=== PATIENT | female | born 1935 | race Caucasian/White ===

== ENCOUNTER 2018-02-09 21:09 | Emergency (ER) | payer MEDICARE, OTHER ==
--- NOTE | 2018-02-12 11:33 | ER ---
DATE SEEN: 02/09/2018 TIME SEEN: The patient is seen 2120 hours. HISTORY OF PRESENT ILLNESS: Any is an 82-year-old female who looks much younger than her stated age; looks to be 75. She takes warfarin for anticoagulation and blood pressure medications. She has diabetes and she uses insulin. The patient noticed spontaneous onset of swelling of left lower ankle this morning. This gradually progressively got worse and tighter with mild tenderness. She has many varicose veins of lower extremities, never had any stripping. She has mild pain. She is not walking with a limp. MEDICATIONS: 1. Vitamin C. 2. Lutein. 3. Calcium carbonate. 4. Insulin 3 units subcu t.i.d. 5. Insulin degludec 9 units daily. 6. Lovastatin 40 mg daily. 7. Amlodipine 2.5 mg. 8. Warfarin 7.5 mg Monday and Monday. 9. Coumadin 10 mg Monday, Monday, , Monday, and Monday. 10.Losartan 100 mg at bedtime. 11.Carvedilol 25 mg b.i.d. 12.Levothyroxine 137. PAST MEDICAL HISTORY: Hypertension; hypothyroidism, treated; atrial fibrillation with slow ventricular rate. REVIEW OF SYSTEMS: Negative. PHYSICAL EXAMINATION: VITAL SIGNS: Blood pressure 196/100; it was repeated, 173/93. Heart rate 69 and irregularly irregular. Respirations 20. Oxygen saturation 97%. Temperature 37.1 degrees centigrade. Weight 60.4 kilos. BMI of 22.9 kg/m2. GENERAL: The patient is alert, pleasant woman. PERRLA intact. She wears glasses. Hearing is good. Pharynx without abnormality. NECK: No bruits. LUNGS: Clear, without rales, rhonchi. CARDIAC: Irregular heartbeat. S3 and S4 are increased. She has an S3-4 gallop. ABDOMEN: Soft. No guarding. No abdominal discomfort. EXTREMITIES: Left lower extremity and right lower extremity, multiple superficial varicosities. Vascular structures nontender. Left ankle, mild swelling, mild tenderness. Distal to this on the lateral mid foot, she has ecchymosis and vascular purple discoloration. Range of motion of ankles normal. Drawer sign is negative and no proximal 5th metatarsal tenderness. ASSESSMENT: Spontaneous hemorrhage of superficial varicose veins into the left foot, resulting in swelling, mild tenderness. No evidence for fracture. INR is 2.34 and therapeutic. Hemoglobin is 13.6. White count is normal at 6500, PMNs 54, lymphocytes 35, monos 8, and platelets 156,000. PLAN: Chris wrap. Continue with her Coumadin. She needs it for atrial fibrillation, to prevent complications. Elevate her leg. Only get up to go to the bathroom, to eat, and shower. Follow up with doctor in a week, earlier if worse. Elevate her legs above her heart most of the day for the next several days. OTHER DIAGNOSES: 1. Atrial fibrillation, on anticoagulation, therapeutic. 2. Hypertension, treated. 3. Hypothyroidism, treated. 4. Diabetic, treated. /[id number] ERNESTO/LIZET
== END 2018-02-09 22:03 | disposition home or self-care (01) ==
LOC: FB.ED 21:09
DX: I83.92 Asymptomatic varicose veins of left lower extremity (principal); I10 Essential (primary) hypertension; E03.9 Hypothyroidism, unspecified; E11.9 Type 2 diabetes mellitus without complications; Z79.4 Long term (current) use of insulin; Z79.899 Other long term (current) drug therapy
CPT/HCPCS: 36415; 85025; 85610; 99283

== ENCOUNTER 2020-03-16 11:16 | Observation (INO) | payer MEDICARE, OTHER ==
--- NOTE | 2020-03-16 11:56 | EDM.PDOC ---
ED HPI GENERAL MEDICAL PROBLEM - General Chief Complaint: Gastrointestinal Problem Stated Complaint: BLOODY STOOLS Time Seen by Provider: 03/16/20 11:25 Source of Information: Reports: Patient History Limitations: Reports: No Limitations - History of Present Illness INITIAL COMMENTS - FREE TEXT/NARRATIVE: c/o blood in toilet water x 2 today pt had colonoscopy [address] Crouch in clinic, pt told it "was fine" and that she did not need to have additional ones has been working in her garden, eating tomatoes 1w ago she had epigastric pain, cramping, intermittent, occurred daily for 2-3d, then moved to her lower abd, also cramping had soft daily BMs, good appetite, felt fine awoke 3x last night to void, as usual up at 7:30a and had a small formed brown BM with BRBC in toilet water, no pain or cramping with BM later in AM she had a 2nd small BM with smaller amount of BRBC in toile water on warfarin x ~15y for afib, had EST in [place] ~15y ago at time of dx which was neg, no other CV hx, no stents, no OH lives alone in her own house, 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, has 4 children, all live in the [facility], born and lived her entire live in [place] no h/o hemorrhoids has hysterectomy age 47, later had oopherectomy, denies other abd surgery no n/v, not ill, feels well, no f/c/d PCP Marley Jung PMH INCLUDES PER [facility] DM, hypothyroid, afib LAST ED VISIT RECENT MEDS PER [facility] Humalog 3u tid, Tresiba 9u/d, levothyr 137 mcg/d CV carvedilol 25 bid, amlodipine 2.5 qhs, warfarin, lovastatin 40 qhs, losartan 100 qhs NUTR calcium, vit C RECENT HOSPITALIZATION RECENT LABS IN [facility] 2y ago CBC neg with hgb 13.6, no comparison 2y INR 2.34 RECENT IMAGING IN [facility] only imaging is bone density scan 6y with dx osteopenia Lower Abdomen Pain Score (Numeric/FACES): 2 - Related Data Allergies Allergy/AdvReac Type Severity Reaction Status Date / Time No Known Allergies Allergy Verified 02/09/18 21:23 Home Meds: Home Meds Ascorbate Calcium [Vitamin C] 500 mg PO DAILY 02/09/18 [History] Calcium Carbonate [Calcium] 600 mg PO BEDTIME 02/09/18 [History] Insulin Degludec [Tresiba Flextouch U-100] 9 units SQ DAILY 02/09/18 [History] Insulin Lispro [Humalog] 3 unit SQ TID 02/09/18 [History] Levothyroxine Sodium 137 mcg PO DAILY 02/09/18 [History] Losartan [Cozaar] 100 mg PO BEDTIME 02/09/18 [History] Lovastatin 40 mg PO BEDTIME 02/09/18 [History] Lutein 20 mg PO BEDTIME 02/09/18 [History] Warfarin [Coumadin] 7.5 mg PO MOWE 02/09/18 [History] Warfarin [Coumadin] 10 mg PO SUTUTHFRSA 02/09/18 [History] amLODIPine [Norvasc] 2.5 mg PO BEDTIME 02/09/18 [History] carvediloL [Carvedilol] 25 mg PO BID 02/09/18 [History] Past Medical History Cardiovascular History: Reports: Afib Endocrine/Metabolic History: Reports: Diabetes, Type II Social & Family History - Family History Family Medical History: Noncontributory - Tobacco Use Smoking Status *Q: Never Smoker - Caffeine Use Caffeine Use: Reports: Coffee ED ROS GENERAL - Review of Systems Review Of Systems: See Below Constitutional: Reports: No Symptoms HEENT: Reports: No Symptoms Respiratory: Reports: No Symptoms Cardiovascular: Reports: No Symptoms Endocrine: Reports: No Symptoms GI/Abdominal: Reports: Abdominal Pain, Diarrhea. Denies: Nausea, Vomiting : Reports: No Symptoms Musculoskeletal: Reports: No Symptoms Skin: Reports: No Symptoms Neurological: Reports: No Symptoms Psychiatric: Reports: No Symptoms Hematologic/Lymphatic: Reports: No Symptoms Immunologic: Reports: No Symptoms ED EXAM, GI/ABD - Physical Exam Exam: See Below Exam Limited By: No Limitations General Appearance: Alert, WD/WN, No Apparent Distress Ears: Hearing Grossly Normal Neck: Normal Inspection, Supple, Non-Tender, Full Range of Motion. No: Lymphadenopathy (R), Lymphadenopathy (L) Respiratory/Chest: No Respiratory Distress, Lungs Clear, Normal Breath Sounds, No Accessory Muscle Use, Chest Non-Tender Cardiovascular: Other (slight irregular, 1-2/6 SALONI at LSB, quiet precordium, chest wall nontender) GI/Abdominal Exam: Normal Bowel Sounds, Soft, Non-Tender, No Organomegaly, No Distention, No Mass, Other (soft, ND, good BS x 4, no mass, no definite tender to deep palp throughout including epigastrium and lower abd, no CVAT b/l) Rectal (Female) Exam: Other (perianal exam with normal skin, no hemorrhoids, no visible stool or RBC, SHANNAN deferred) Back Exam: Normal Inspection, Full Range of Motion. No: CVA Tenderness (R), CVA Tenderness (L) Extremities: Normal Inspection, Normal Range of Motion, Non-Tender, No Pedal Edema Neurological: Alert, Oriented, CN II-XII Intact, Normal Cognition, Normal Gait, No Motor/Sensory Deficits Psychiatric: Normal Affect, Normal Mood Skin Exam: Warm, Dry, Intact, Normal Color, No Rash Lymphatic: No Adenopathy Course - Vital Signs Last Recorded V/S: Last Vital Signs Temp 36.8 C 03/16/20 11:30 Pulse 61 03/16/20 11:30 Resp 16 03/16/20 11:30 BP 156/58 H 03/16/20 11:30 Pulse Ox 97 03/16/20 11:30 - Orders/Labs/Meds Orders: Active Orders 24 hr Category Date Time Status Admission Status [Patient Status] [ADT] Routine ADT 03/16/20 15:18 Ordered EKG Documentation Completion [RC] ASDIRECTED Care 03/16/20 12:12 Active CULTURE URINE [RM] Stat Lab 03/16/20 12:25 Received Magnesium Sulfate/Water [Magnesium Sulfate in Water Med 03/16/20 15:15 Active Premix] 50 ml IV ONETIME EKG 12 Lead [EK] Routine Ther 03/16/20 12:11 Ordered Medication Orders Magnesium Sulfate (Magnesium Sulfate In Water Premix) 50 mls @ 50 mls/hr IV ONETIME ONE Stop: 03/16/20 16:14 Labs: Laboratory Tests 03/16/20 03/16/20 03/16/20 Range/Units 12:23 12:25 12:25 WBC 8.2 (4.5-12.0) X10-3/uL RBC 4.48 (3.23-5.20) x10(6)uL Hgb 13.1 (11.5-15.5) g/dL Hct 40.8 (30.0-51.3) % MCV 91.1 (80-96) fL MCH 29.3 (27.7-33.6) pg MCHC 32.1 L (32.2-35.4) g/dL RDW 12.5 (11.5-15.5) % Plt Count 195 (125-369) X10(3)uL MPV 8.4 (7.4-10.4) fL Neut % (Auto) 75.5 (46-82) % Lymph % (Auto) 15.7 (13-37) % [place] % (Auto) 8.3 (4-12) % Eos % (Auto) 0 L (1.0-5.0) % Baso % (Auto) 0 (0-2) % Neut # (Auto) 6.2 (1.6-8.3) # Lymph # (Auto) 1.3 (0.6-5.0) # [place] # (Auto) 0.7 (0.0-1.3) # Eos # (Auto) 0.0 (0.0-0.8) # Baso # (Auto) 0.0 (0.0-0.2) # PT 46.8 H* (9.0-11.1) sec INR 4.80 H* (1.00-1.24) Sodium (135-145) mmol/L Potassium (3.5-5.3) mmol/L Chloride (100-110) mmol/L Carbon Dioxide (21-32) mmol/L BUN (7-18) mg/dL Creatinine (0.55-1.02) mg/dL Est Cr Clr Drug Dosing Estimated GFR (MDRD) (>60) BUN/Creatinine Ratio (9-20) Glucose (80-116) mg/dL Calcium (8.6-10.2) mg/dL Magnesium (1.8-2.5) mg/dL Total Bilirubin (0.1-1.3) mg/dL AST (5-25) IU/L ALT (12-36) U/L Alkaline Phosphatase (56-112) IU/L Troponin I (4.0-60.3) pg/mL C-Reactive Protein (0.5-0.9) mg/dL NT-Pro-B Natriuret Pep (<=450) pg/mL Total Protein (6.0-8.0) g/dL Albumin (3.2-4.6) g/dL Globulin g/dL Albumin/Globulin Ratio Lipase (73-393) U/L Urine Color Yellow (YELLOW) Urine Appearance Slightly cloudy (CLEAR) Urine pH 6.0 (5.0-6.5) Ur Specific [place] 1.015 (1.010-1.025) Urine Protein 30 H (NEGATIVE) mg/dL Urine Glucose (UA) >1000 H (NORMAL) mg/dL Urine Ketones 15 H (NEGATIVE) mg/dL Urine Occult Blood Large H (NEGATIVE) Urine Nitrite Negative (NEGATIVE) Urine Bilirubin Negative (NEGATIVE) Urine Urobilinogen Normal (NEGATIVE) mg/dL Ur Leukocyte Esterase Small H (NEGATIVE) Urine RBC 0-5 (0-5) Urine WBC 5-10 H (0-5) Ur Squamous Epith Cells Occasional (NS,R,O) Amorphous Sediment Few Urine Bacteria Many H (NS) 03/16/20 03/16/20 03/16/20 Range/Units 12:25 12:25 12:30 WBC (4.5-12.0) X10-3/uL RBC (3.23-5.20) x10(6)uL Hgb (11.5-15.5) g/dL Hct (30.0-51.3) % MCV (80-96) fL MCH (27.7-33.6) pg MCHC (32.2-35.4) g/dL RDW (11.5-15.5) % Plt Count (125-369) X10(3)uL MPV (7.4-10.4) fL Neut % (Auto) (46-82) % Lymph % (Auto) (13-37) % [place] % (Auto) (4-12) % Eos % (Auto) (1.0-5.0) % Baso % (Auto) (0-2) % Neut # (Auto) (1.6-8.3) # Lymph # (Auto) (0.6-5.0) # [place] # (Auto) (0.0-1.3) # Eos # (Auto) (0.0-0.8) # Baso # (Auto) (0.0-0.2) # PT (9.0-11.1) sec INR (1.00-1.24) Sodium 138 (135-145) mmol/L Potassium 3.8 (3.5-5.3) mmol/L Chloride 101 (100-110) mmol/L Carbon Dioxide 32 (21-32) mmol/L BUN 17 (7-18) mg/dL Creatinine 1.0 (0.55-1.02) mg/dL Est Cr Clr Drug Dosing TNP Estimated GFR (MDRD) 53 L (>60) BUN/Creatinine Ratio 17.0 (9-20) Glucose 322 H (80-116) mg/dL Calcium 9.3 (8.6-10.2) mg/dL Magnesium 1.5 L (1.8-2.5) mg/dL Total Bilirubin 1.3 (0.1-1.3) mg/dL AST 17 (5-25) IU/L ALT 16 (12-36) U/L Alkaline Phosphatase 66 (56-112) IU/L Troponin I 90.9 H* (4.0-60.3) pg/mL C-Reactive Protein 3.4 H* (0.5-0.9) mg/dL NT-Pro-B Natriuret Pep (<=450) pg/mL Total Protein 6.9 (6.0-8.0) g/dL Albumin 3.2 (3.2-4.6) g/dL Globulin 3.7 g/dL Albumin/Globulin Ratio 0.9 Lipase 100 (73-393) U/L Urine Color (YELLOW) Urine Appearance (CLEAR) Urine pH (5.0-6.5) Ur Specific [place] (1.010-1.025) Urine Protein (NEGATIVE) mg/dL Urine Glucose (UA) (NORMAL) mg/dL Urine Ketones (NEGATIVE) mg/dL Urine Occult Blood (NEGATIVE) Urine Nitrite (NEGATIVE) Urine Bilirubin (NEGATIVE) Urine Urobilinogen (NEGATIVE) mg/dL Ur Leukocyte Esterase (NEGATIVE) Urine RBC (0-5) Urine WBC (0-5) Ur Squamous Epith Cells (NS,R,O) Amorphous Sediment Urine Bacteria (NS) 03/16/20 03/16/20 Range/Units 12:30 14:35 WBC (4.5-12.0) X10-3/uL RBC (3.23-5.20) x10(6)uL Hgb (11.5-15.5) g/dL Hct (30.0-51.3) % MCV (80-96) fL MCH (27.7-33.6) pg MCHC (32.2-35.4) g/dL RDW (11.5-15.5) % Plt Count (125-369) X10(3)uL MPV (7.4-10.4) fL Neut % (Auto) (46-82) % Lymph % (Auto) (13-37) % [place] % (Auto) (4-12) % Eos % (Auto) (1.0-5.0) % Baso % (Auto) (0-2) % Neut # (Auto) (1.6-8.3) # Lymph # (Auto) (0.6-5.0) # [place] # (Auto) (0.0-1.3) # Eos # (Auto) (0.0-0.8) # Baso # (Auto) (0.0-0.2) # PT (9.0-11.1) sec INR (1.00-1.24) Sodium (135-145) mmol/L Potassium (3.5-5.3) mmol/L Chloride (100-110) mmol/L Carbon Dioxide (21-32) mmol/L BUN (7-18) mg/dL Creatinine (0.55-1.02) mg/dL Est Cr Clr Drug Dosing Estimated GFR (MDRD) (>60) BUN/Creatinine Ratio (9-20) Glucose (80-116) mg/dL Calcium (8.6-10.2) mg/dL Magnesium (1.8-2.5) mg/dL Total Bilirubin (0.1-1.3) mg/dL AST (5-25) IU/L ALT (12-36) U/L Alkaline Phosphatase (56-112) IU/L Troponin I 86.0 H* (4.0-60.3) pg/mL C-Reactive Protein (0.5-0.9) mg/dL NT-Pro-B Natriuret Pep 3165 H* (<=450) pg/mL Total Protein (6.0-8.0) g/dL Albumin (3.2-4.6) g/dL Globulin g/dL Albumin/Globulin Ratio Lipase (73-393) U/L Urine Color (YELLOW) Urine Appearance (CLEAR) Urine pH (5.0-6.5) Ur Specific [place] (1.010-1.025) Urine Protein (NEGATIVE) mg/dL Urine Glucose (UA) (NORMAL) mg/dL Urine Ketones (NEGATIVE) mg/dL Urine Occult Blood (NEGATIVE) Urine Nitrite (NEGATIVE) Urine Bilirubin (NEGATIVE) Urine Urobilinogen (NEGATIVE) mg/dL Ur Leukocyte Esterase (NEGATIVE) Urine RBC (0-5) Urine WBC (0-5) Ur Squamous Epith Cells (NS,R,O) Amorphous Sediment Urine Bacteria (NS) Meds: Medications Generic Name Dose Route Start Last Admin Trade Name Freq PRN Reason Stop Dose Admin Magnesium Sulfate 50 mls @ 50 mls/hr 03/16/20 15:15 Magnesium Sulfate In Water Premix IV 03/16/20 16:14 ONETIME ONE Discontinued Medications Generic Name Dose Route Start Last Admin Trade Name Freq PRN Reason Stop Dose Admin Ceftriaxone Sodium 1 gm 03/16/20 13:40 03/16/20 14:06 Rocephin IVPUSH 03/16/20 13:41 1 gm ONETIME ONE Administration Sodium Chloride 1,000 mls @ 999 mls/hr 03/16/20 13:42 03/16/20 13:57 Normal Saline IV 03/16/20 14:42 999 mls/hr .BOLUS ONE Administration Insulin Human Regular 5 unit 03/16/20 13:41 03/16/20 14:11 Humulin R IV 03/16/20 13:42 5 unit ONETIME ONE Administration - Re-Assessments/Exams Free Text/Narrative Re-Assessment/Exam: 03/16/20 15:26 pt reports her warfarin was inc'd 2m ago, has been taking as rx'ed she did have a small BM here in ED, said it was brown, no RBC in toilet water, unfortunately she flushed it without showing it to an yone as she had a colonoscopy last year, symptomatic monitoring of her hgb and rectal bleeding would appear appropriate will hold warfarin for now also with elevated trop x 2 that is unchanged, cannot exclude an OH one week ago (she did have upper abd pain) lower abd pain now is c/w UTI elevated CRP is most likely d/t UTI, does not have symptoms of PMR or other inflammatory disorder pt currently on BB and ARB, does have some peripheral edema altho does not appear to be a candidate for a low dose diuretic as she is mildly dehydrated already d/w hospitalist Dr Alexander who accepted her in admission for 1) hematochezia and monitoring of her hgb which is currently down 0.5 points from previous, 2) cardiac monitoring, will be able to do an echo tomorrow and arrange a cardiology referral assuming she is ready for d/c in AM pt in agreement Departure - Departure Time of Disposition: 15:22 Disposition: Refer to Observation Condition: Good Clinical Impression: Hematochezia, Elevated troponin, LV dysfunction, ST segment depression, Supratherapeutic INR, Hypomagnesemia, UTI (urinary tract infection), Elevated C-reactive protein (CRP), Dehydration, Ketonuria, Hyperglycemia - Discharge Information *PRESCRIPTION DRUG MONITORING PROGRAM REVIEWED*: Not Applicable *COPY OF PRESCRIPTION DRUG MONITORING REPORT IN PATIENT [place]: Not Applicable Referrals: Lauren Coronado TREER [Primary Care Provider] - Forms: ED Department Discharge Sepsis Event Note (ED) - Evaluation Sepsis Screening Result: No Definite Risk - Focused Exam Vital Signs: Vital Signs Temp Pulse Resp BP Pulse Ox 03/16/20 11:30 36.8 C 61 16 156/58 H 97 - My Orders Last 24 Hours: My Active Orders 03/16/20 12:11 EKG 12 Lead [EK] Routine 03/16/20 12:12 EKG Documentation Completion [RC] ASDIRECTED 03/16/20 12:25 CULTURE URINE [RM] Stat 03/16/20 15:15 Magnesium Sulfate/Water [Magnesium Sulfate in Water Premix] 50 ml IV ONETIME 03/16/20 15:18 Admission Status [Patient Status] [ADT] Routine - Assessment/Plan Last 24 Hours: My Active Orders 03/16/20 12:11 EKG 12 Lead [EK] Routine 03/16/20 12:12 EKG Documentation Completion [RC] ASDIRECTED 03/16/20 12:25 CULTURE URINE [RM] Stat 03/16/20 15:15 Magnesium Sulfate/Water [Magnesium Sulfate in Water Premix] 50 ml IV ONETIME 03/16/20 15:18 Admission Status [Patient Status] [ADT] Routine
[2020-03-16] MEDS ORDERED: cefTRIAXone 2 GM Vial IVPUSH ONE (13:40)
[2020-03-16] MEDS ORDERED: Insulin Regular, Human 100 Units/ML 3 ML Vial IV ONE (13:41)
[2020-03-16] MEDS ORDERED: Sodium Chloride 0.9% 1,000 ML IV ONE (13:42)
[2020-03-16] MEDS ORDERED: Magnesium Sulfate/Water 50 ML IV ONE (15:15)
[2020-03-16] MEDS ORDERED: Phytonadione 5 MG Tab PO ONE (16:29)
[2020-03-16] MEDS ORDERED: INSULIN DEGLUDEC SQ SCH (16:45)
--- NOTE | 2020-03-16 17:07 | PCM.HP.2 ---
H&P History of Present Illness - General Date of Service: 03/16/20 Admit Problem/Dx: Admission Diagnosis/Problem Admission Diagnosis/Problem Hematochezia Source of Information: Patient, Old Records, Provider History Limitations: Reports: No Limitations - History of Present Illness Initial Comments - Free Text/Narative: Any is an 84-year-old female what bright red blood per rectum, one stool this morning. She is otherwise healthy and has a history of atrial fibrillation on long-term anticoagulation. She denied any chest pain shortness breath fever or chills. Lower Abdomen Pain Score (Numeric/FACES): 2 - Related Data Allergies/Adverse Reactions: Allergies Allergy/AdvReac Type Severity Reaction Status Date / Time No Known Allergies Allergy Verified 02/09/18 21:23 Home Medications: Home Meds Ascorbate Calcium [Vitamin C] 500 mg PO DAILY 02/09/18 [History] Calcium Carbonate [Calcium] 600 mg PO BEDTIME 02/09/18 [History] Insulin Degludec [Tresiba Flextouch U-100] 14 units SQ DAILY 02/09/18 [History] Insulin Lispro [Humalog] 3 unit SQ TID 02/09/18 [History] Levothyroxine Sodium 137 mcg PO DAILY 02/09/18 [History] Losartan [Cozaar] 100 mg PO BEDTIME 02/09/18 [History] Lovastatin 40 mg PO BEDTIME 02/09/18 [History] Lutein 20 mg PO BEDTIME 02/09/18 [History] Warfarin [Coumadin] 7.5 mg PO MOWE 02/09/18 [History] Warfarin [Coumadin] 10 mg PO SUTUTHFRSA 02/09/18 [History] Metoprolol Tartrate 50 mg PO BID 03/16/20 [History] amLODIPine [Norvasc] 5 mg PO DAILY 03/16/20 [History] Past Medical History Cardiovascular History: Reports: Afib Endocrine/Metabolic History: Reports: Diabetes, Type II Social & Family History - Family History Family Medical History: Noncontributory - Tobacco Use Smoking Status *Q: Never Smoker - Caffeine Use Caffeine Use: Reports: Coffee H&P Review of Systems - Review of Systems: Review Of Systems: Comprehensive ROS is negative, except as noted in HPI. Exam - Exam Exam: See Below - Vital Signs Vital Signs: Last Vital Signs Temp 98.3 F 03/16/20 11:30 Pulse 61 03/16/20 11:30 Resp 16 03/16/20 11:30 BP 156/58 H 03/16/20 11:30 Pulse Ox 97 03/16/20 11:30 Weight: 63.503 kg - Exam General: Alert, Oriented, 4 HEENT: PERRLA, Hearing Intact, Mucosa Moist & [place], Nares Patent, Normal Nasal Septum, Posterior Pharynx Clear, Conjunctiva Clear, EOMI, EACs Clear, TMs Clear Neck: Supple, Trachea Midline, 2 Lungs: Clear to Auscultation, Normal Respiratory Effort Cardiovascular: Irregular Rhythm GI/Abdominal Exam: Normal Bowel Sounds, Soft, Non-Tender, No Organomegaly, No Distention, No Abnormal Bruit, No Mass, Pelvis Stable (Female) Exam: Deferred Rectal (Female) Exam: Deferred Back Exam: Normal Inspection, Full Range of Motion, NT Extremities: Normal Inspection, Normal Range of Motion, Non-Tender, No Pedal Edema, Normal Capillary Refill Skin: Warm, Dry, Intact Neurological: Cranial Nerves Intact, Reflexes Equal Bilateral Neuro Extensive - Mental Status: Alert, Oriented x3, Normal Mood/Affect, Normal Cognition Neuro Extensive - Motor, Sensory, Reflexes: CN II-XII Intact, Normal Gait, Normal Reflexes Psychiatric: Alert, Normal Affect, Normal Mood - Patient Data Lab Results Last 24 hrs: Laboratory Results - last 24 hr 03/16/20 03/16/20 03/16/20 Range/Units 12:23 12:25 12:25 WBC 8.2 (4.5-12.0) X10-3/uL RBC 4.48 (3.23-5.20) x10(6)uL Hgb 13.1 (11.5-15.5) g/dL Hct 40.8 (30.0-51.3) % MCV 91.1 (80-96) fL MCH 29.3 (27.7-33.6) pg MCHC 32.1 L (32.2-35.4) g/dL RDW 12.5 (11.5-15.5) % Plt Count 195 (125-369) X10(3)uL MPV 8.4 (7.4-10.4) fL Neut % (Auto) 75.5 (46-82) % Lymph % (Auto) 15.7 (13-37) % Sharp % (Auto) 8.3 (4-12) % Eos % (Auto) 0 L (1.0-5.0) % Baso % (Auto) 0 (0-2) % Neut # (Auto) 6.2 (1.6-8.3) # Lymph # (Auto) 1.3 (0.6-5.0) # Sharp # (Auto) 0.7 (0.0-1.3) # Eos # (Auto) 0.0 (0.0-0.8) # Baso # (Auto) 0.0 (0.0-0.2) # PT 46.8 H* (9.0-11.1) sec INR 4.80 H* (1.00-1.24) Sodium (135-145) mmol/L Potassium (3.5-5.3) mmol/L Chloride (100-110) mmol/L Carbon Dioxide (21-32) mmol/L BUN (7-18) mg/dL Creatinine (0.55-1.02) mg/dL Est Cr Clr Drug Dosing Estimated GFR (MDRD) (>60) BUN/Creatinine Ratio (9-20) Glucose (80-116) mg/dL Calcium (8.6-10.2) mg/dL Magnesium (1.8-2.5) mg/dL Total Bilirubin (0.1-1.3) mg/dL AST (5-25) IU/L ALT (12-36) U/L Alkaline Phosphatase (56-112) IU/L Troponin I (4.0-60.3) pg/mL C-Reactive Protein (0.5-0.9) mg/dL NT-Pro-B Natriuret Pep (<=450) pg/mL Total Protein (6.0-8.0) g/dL Albumin (3.2-4.6) g/dL Globulin g/dL Albumin/Globulin Ratio Lipase (73-393) U/L Urine Color Yellow (YELLOW) Urine Appearance Slightly cloudy (CLEAR) Urine pH 6.0 (5.0-6.5) Ur Specific [place] 1.015 (1.010-1.025) Urine Protein 30 H (NEGATIVE) mg/dL Urine Glucose (UA) >1000 H (NORMAL) mg/dL Urine Ketones 15 H (NEGATIVE) mg/dL Urine Occult Blood Large H (NEGATIVE) Urine Nitrite Negative (NEGATIVE) Urine Bilirubin Negative (NEGATIVE) Urine Urobilinogen Normal (NEGATIVE) mg/dL Ur Leukocyte Esterase Small H (NEGATIVE) Urine RBC 0-5 (0-5) Urine WBC 5-10 H (0-5) Ur Squamous Epith Cells Occasional (NS,R,O) Amorphous Sediment Few Urine Bacteria Many H (NS) 03/16/20 03/16/20 03/16/20 Range/Units 12:25 12:25 12:30 WBC (4.5-12.0) X10-3/uL RBC (3.23-5.20) x10(6)uL Hgb (11.5-15.5) g/dL Hct (30.0-51.3) % MCV (80-96) fL MCH (27.7-33.6) pg MCHC (32.2-35.4) g/dL RDW (11.5-15.5) % Plt Count (125-369) X10(3)uL MPV (7.4-10.4) fL Neut % (Auto) (46-82) % Lymph % (Auto) (13-37) % Sharp % (Auto) (4-12) % Eos % (Auto) (1.0-5.0) % Baso % (Auto) (0-2) % Neut # (Auto) (1.6-8.3) # Lymph # (Auto) (0.6-5.0) # Sharp # (Auto) (0.0-1.3) # Eos # (Auto) (0.0-0.8) # Baso # (Auto) (0.0-0.2) # PT (9.0-11.1) sec INR (1.00-1.24) Sodium 138 (135-145) mmol/L Potassium 3.8 (3.5-5.3) mmol/L Chloride 101 (100-110) mmol/L Carbon Dioxide 32 (21-32) mmol/L BUN 17 (7-18) mg/dL Creatinine 1.0 (0.55-1.02) mg/dL Est Cr Clr Drug Dosing TNP Estimated GFR (MDRD) 53 L (>60) BUN/Creatinine Ratio 17.0 (9-20) Glucose 322 H (80-116) mg/dL Calcium 9.3 (8.6-10.2) mg/dL Magnesium 1.5 L (1.8-2.5) mg/dL Total Bilirubin 1.3 (0.1-1.3) mg/dL AST 17 (5-25) IU/L ALT 16 (12-36) U/L Alkaline Phosphatase 66 (56-112) IU/L Troponin I 90.9 H* (4.0-60.3) pg/mL C-Reactive Protein 3.4 H* (0.5-0.9) mg/dL NT-Pro-B Natriuret Pep (<=450) pg/mL Total Protein 6.9 (6.0-8.0) g/dL Albumin 3.2 (3.2-4.6) g/dL Globulin 3.7 g/dL Albumin/Globulin Ratio 0.9 Lipase 100 (73-393) U/L Urine Color (YELLOW) Urine Appearance (CLEAR) Urine pH (5.0-6.5) Ur Specific [place] (1.010-1.025) Urine Protein (NEGATIVE) mg/dL Urine Glucose (UA) (NORMAL) mg/dL Urine Ketones (NEGATIVE) mg/dL Urine Occult Blood (NEGATIVE) Urine Nitrite (NEGATIVE) Urine Bilirubin (NEGATIVE) Urine Urobilinogen (NEGATIVE) mg/dL Ur Leukocyte Esterase (NEGATIVE) Urine RBC (0-5) Urine WBC (0-5) Ur Squamous Epith Cells (NS,R,O) Amorphous Sediment Urine Bacteria (NS) 03/16/20 03/16/20 Range/Units 12:30 14:35 WBC (4.5-12.0) X10-3/uL RBC (3.23-5.20) x10(6)uL Hgb (11.5-15.5) g/dL Hct (30.0-51.3) % MCV (80-96) fL MCH (27.7-33.6) pg MCHC (32.2-35.4) g/dL RDW (11.5-15.5) % Plt Count (125-369) X10(3)uL MPV (7.4-10.4) fL Neut % (Auto) (46-82) % Lymph % (Auto) (13-37) % Sharp % (Auto) (4-12) % Eos % (Auto) (1.0-5.0) % Baso % (Auto) (0-2) % Neut # (Auto) (1.6-8.3) # Lymph # (Auto) (0.6-5.0) # Sharp # (Auto) (0.0-1.3) # Eos # (Auto) (0.0-0.8) # Baso # (Auto) (0.0-0.2) # PT (9.0-11.1) sec INR (1.00-1.24) Sodium (135-145) mmol/L Potassium (3.5-5.3) mmol/L Chloride (100-110) mmol/L Carbon Dioxide (21-32) mmol/L BUN (7-18) mg/dL Creatinine (0.55-1.02) mg/dL Est Cr Clr Drug Dosing Estimated GFR (MDRD) (>60) BUN/Creatinine Ratio (9-20) Glucose (80-116) mg/dL Calcium (8.6-10.2) mg/dL Magnesium (1.8-2.5) mg/dL Total Bilirubin (0.1-1.3) mg/dL AST (5-25) IU/L ALT (12-36) U/L Alkaline Phosphatase (56-112) IU/L Troponin I 86.0 H* (4.0-60.3) pg/mL C-Reactive Protein (0.5-0.9) mg/dL NT-Pro-B Natriuret Pep 3165 H* (<=450) pg/mL Total Protein (6.0-8.0) g/dL Albumin (3.2-4.6) g/dL Globulin g/dL Albumin/Globulin Ratio Lipase (73-393) U/L Urine Color (YELLOW) Urine Appearance (CLEAR) Urine pH (5.0-6.5) Ur Specific [place] (1.010-1.025) Urine Protein (NEGATIVE) mg/dL Urine Glucose (UA) (NORMAL) mg/dL Urine Ketones (NEGATIVE) mg/dL Urine Occult Blood (NEGATIVE) Urine Nitrite (NEGATIVE) Urine Bilirubin (NEGATIVE) Urine Urobilinogen (NEGATIVE) mg/dL Ur Leukocyte Esterase (NEGATIVE) Urine RBC (0-5) Urine WBC (0-5) Ur Squamous Epith Cells (NS,R,O) Amorphous Sediment Urine Bacteria (NS) Result Diagrams: 03/17/20 06:25 03/17/20 06:25 Sepsis Event Note - Evaluation Sepsis Screening Result: No Definite Risk - Focused Exam Vital Signs: Vital Signs Temp Pulse Resp BP Pulse Ox 03/16/20 11:30 98.3 F 61 16 156/58 H 97 - Problem List (1) BRBPR (bright red blood per rectum) SNOMED Code(s): 46921286 ICD Code: K62.5 - HEMORRHAGE OF ANUS AND RECTUM Status: Acute Current Visit: Yes (2) Afib SNOMED Code(s): 29370900 ICD Code: I48.91 - UNSPECIFIED ATRIAL FIBRILLATION Status: Acute Current Visit: Yes Qualifiers: Atrial fibrillation type: persistent (not longstanding) Qualified Code(s): I48.19 - Other persistent atrial fibrillation; I48.1 - Persistent atrial fibrillation (3) USP current use of anticoagulant SNOMED Code(s): 748511558 ICD Code: Z79.01 - SKILLED NURSING (CURRENT) USE OF ANTICOAGULANTS Status: Acute Current Visit: Yes Problem List Initiated/Reviewed/Updated: Yes Orders Last 24hrs: Active Orders 24 hr Category Date Time Status Admission Status [Patient Status] [ADT] Routine ADT 03/16/20 15:18 Active Blood Glucose Check, Bedside [RC] QIDACANDBED Care 03/16/20 16:29 Active Cardiac Monitoring [RC] CONTINUOUS Care 03/16/20 16:30 Active Communication Order [RC] ROUTINE Care 03/17/20 09:00 Active EKG Documentation Completion [RC] ASDIRECTED Care 03/16/20 12:12 Active EKG Documentation Completion [RC] ASDIRECTED Care 03/16/20 16:38 Active Height and Weight [RC] UPON Care 03/16/20 16:29 Active Oxygen Therapy [RC] PRN Care 03/16/20 16:29 Active Up ad Daniela [RC] ASDIRECTED Care 03/16/20 16:29 Active VTE/DVT Education [RC] Per Unit Routine Care 03/16/20 16:29 Active Vital Signs [RC] Q4H Care 03/16/20 16:29 Active BASIC METABOLIC PANEL,BMP [CHEM] DAILY Lab 03/17/20 16:30 Ordered BASIC METABOLIC PANEL,BMP [CHEM] DAILY Lab 03/18/20 16:30 Ordered CBC W/O DIFF,HEMOGRAM [HEME] DAILY Lab 03/17/20 16:30 Ordered CBC W/O DIFF,HEMOGRAM [HEME] DAILY Lab 03/18/20 16:30 Ordered CBC WITH AUTO DIFF [HEME] AM Lab 03/17/20 05:11 Ordered CULTURE URINE [RM] Stat Lab 03/16/20 12:25 Received INR,PT,PROTHROMBIN TIME [COAG] Routine Lab 03/17/20 05:11 Ordered TSH ULTRASENSITIVE [CHEM] Routine Lab 03/16/20 16:42 Ordered Insulin Degludec [Tresiba Flextouch U-100] Med 03/16/20 16:45 Ordered 9 units SQ DAILY Insulin Lispro [HumaLOG] Med 03/16/20 21:00 Ordered 3 unit SUBCUT TID Levothyroxine [Levothroid] Med 03/17/20 09:00 Ordered 137 mcg PO DAILY Losartan [Cozaar] Med 03/16/20 21:00 Ordered 100 mg PO BEDTIME Lovastatin [Mevacor] Med 03/16/20 21:00 Ordered 40 mg PO BEDTIME Lutein [Lutein] Med 03/16/20 21:00 Ordered 20 mg PO BEDTIME Sulfamethoxazole/Trimethoprim [Septra DS] Med 03/17/20 09:00 Ordered 1 tab PO BID amLODIPine [Norvasc] Med 03/16/20 21:00 Pending 2.5 mg PO BEDTIME carvediloL [Coreg] Med 03/16/20 21:00 Ordered 25 mg PO BID Resuscitation Status Routine Resus Stat 03/16/20 16:29 Ordered EKG 12 Lead [EK] Routine Ther 03/16/20 12:11 Ordered EKG 12 Lead [EK] Routine Ther 03/16/20 16:37 Stop Req EKG 12 Lead [EK] Routine Ther 03/17/20 06:00 Ordered Medication Orders Amlodipine Besylate (Norvasc) 2.5 mg PO BEDTIME GISSELL Carvedilol (Coreg) 25 mg PO BID GISSELL Insulin Human Lispro (Humalog) 3 unit SUBCUT TID GISSELL Levothyroxine Sodium (Levothroid) 137 mcg PO DAILY GISSELL Losartan Potassium (Cozaar) 100 mg PO BEDTIME GISSELL Lovastatin (Mevacor) 40 mg PO BEDTIME GISSELL Non-Formulary Medication (Insulin Degludec [Tresiba Flextouch U-100]) 9 units SQ DAILY GISSELL Non-Formulary Medication (Lutein [Lutein]) 20 mg PO BEDTIME GISSELL Trimethoprim/Sulfamethoxazole (Septra Ds) 1 tab PO BID GISSELL Assessment/Plan Comment:: Observe,and repeat CBC in AM. Hold Coumadin.
[2020-03-16] MEDS: Insulin Lispro 100 Unit/ML 3 ML KwikPen SUBCUT SCH (18:00)
[2020-03-16] MEDS ORDERED: Insulin Lispro 100 Unit/ML 3 ML KwikPen SUBCUT ONE (18:39)
[2020-03-16] MEDS ORDERED: Carvedilol 25 MG Tab PO SCH (21:00)
[2020-03-16] MEDS ORDERED: LOVASTATIN 40 MG PO SCH (21:00)
[2020-03-16] MEDS ORDERED: amLODIPine 2.5 MG Tab PO SCH (21:00)
[2020-03-16] MEDS ORDERED: Non-Formulary Medication 1 Each (Lutein [Lutein] 20 MG) PO SCH (21:00)
[2020-03-16] MEDS ORDERED: LOSARTAN 100 MG PO SCH (21:00)
[2020-03-16] MEDS: METOPROLOL TARTRATE 50 MG PO SCH (21:04)
[2020-03-17] MEDS: Insulin Lispro 100 Unit/ML 3 ML KwikPen SUBCUT SCH (08:19)
[2020-03-17] MEDS: METOPROLOL TARTRATE 50 MG PO SCH (08:25)
[2020-03-17] MEDS ORDERED: TRESIBA SQ SCH (09:00)
[2020-03-17] MEDS ORDERED: Sulfamethoxazole/Trimethoprim 800-160 MG Tab PO SCH (09:00)
[2020-03-17] MEDS ORDERED: amLODIPine 5 MG Tab *PTOM PO SCH (09:00)
[2020-03-17] MEDS ORDERED: Hydrochlorothiazide 25 MG Tab *PTOM PO SCH (09:00)
[2020-03-17] MEDS ORDERED: LEVOTHYROXINE 137 MCG PO SCH (09:00)
[2020-03-17] MEDS ORDERED: amLODIPine 10 MG Tab PO SCH (09:00)
--- NOTE | 2020-03-18 05:11 | DISCH ---
DISCHARGE DATE: 03/17/2020 REASON FOR ADMISSION: 1. Supratherapeutic INR. 2. Bright red blood per rectum. 3. Atrial fibrillation. DISCHARGE DIAGNOSES: 1. Supratherapeutic INR. 2. Bright red blood per rectum. 3. Atrial fibrillation. BRIEF HISTORY AND HOSPITAL COURSE: An 84-year-old who came into the ER after fresh blood per rectum one time. She also takes Coumadin for AFib. Her INR was 4.9. She did not have any further bleeding episodes, and hemoglobin remained stable, as well as the vital signs. She will be discharged today. We called the Coumadin Clinic at [facility], and they advised to hold the Coumadin for the next 2 days and follow up with the clinic tomorrow at 1000 in the morning. She is advised to return to the ED with any worsening symptoms. The rest of the home medications were continued. I spent more than 35 minutes in the discharge of the patient. /[id number] YVON/LIZET PARKS
== END 2020-03-17 11:08 | disposition home or self-care (01) ==
LOC: FB.ED 11:16 → FB.MS 15:18
PROVIDERS: ADMIT Emergency Medicine; ATTEND Family Medicine
DX: K62.5 Hemorrhage of anus and rectum (principal); D68.8 Other specified coagulation defects; I48.19 Other persistent atrial fibrillation; E11.9 Type 2 diabetes mellitus without complications; E03.9 Hypothyroidism, unspecified; R79.89 Other specified abnormal findings of blood chemistry; Z79.899 Other long term (current) drug therapy; Z79.890 Hormone replacement therapy; Z79.01 Long term (current) use of anticoagulants
CPT/HCPCS: 36415; 80048; 80053; 81001; 82962; 83690; 83735; 83880; 84443; 84484; 85025; 85610; 86140; 87086; 87088; 87186; 93005; 93308; 96361; 96365; 96375; 99285; A9270; G0378; J0696; J1815; J3475; J7030